=== PATIENT | male | born 1995 | race Caucasian/White ===

== ENCOUNTER 2018-02-07 11:03 | Emergency (ER) | END 2018-02-07 16:09 | disposition home or self-care (01) ==

== ENCOUNTER 2018-02-09 08:58 | Emergency (ER) | END 2018-02-09 10:56 | disposition home or self-care (01) ==

== ENCOUNTER 2018-02-09 15:32 | Observation (INO) | END 2018-02-10 14:15 | disposition left against medical advice (07) ==

== ENCOUNTER 2018-09-16 09:45 | Emergency (ER) | payer SELFPAY ==
[~2018-09-16] VITALS: Ht 172.7 cm; Wt 100.0 kg
[~2018-09-16 09:45] MED LIST: ACET325T33 PO; CEPH-443 PO; HYDR-4011 PO; IBUP800T48 PO; SULF1TAB31 PO
[2018-09-16 10:24] VITALS: BP 124/54; PULSE 70; RESP 20; Ht 172.7 cm; Wt 100.0 kg
[2018-09-16] MEDS ORDERED: KETOROLAC 60 MG INJ IM STA (11:03)
[2018-09-16] MEDS ORDERED: DEXAMETHASONE 10 MG/ML 1 ML INJ IM ONE (11:30)
[2018-09-16] MEDS ORDERED: CYCLOBENZAPRINE 10 MG TAB PO ONE (11:30)
[2018-09-16] MEDS ORDERED: morphine 10 MG INJ IM ONE (12:30)
--- NOTE | 2018-09-16 13:20 | ERD ---
ER Documentation Chief Complaint Chief Complaint c/o lower back pain x1 week, worse today, Hx: back surgery last year HPI History of Present Illness: 23-year-old male who denies past medical history coming in today with complaint of lower back pain is been present for 1 week. Patient reports unknown surgery during 2018 to lumbar due to infection that went to bone. Patient reports that pain is been present for the past week has been very mild. 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 Reports that he is able to go to work yesterday without any difficulty or problems. Patient reports waking up today and barely able to walk due to lower back pain. Denies loss of bowel or bladder. At home pharmacological/nonpharmacological treatment for symptoms: Gabapentin last night, hydrocodone 2 days ago (patient reports that he used to take hydrocodone previously when he had surgery, he accepted a hydrocodone pill from his family member, wasnt his prescription that he took 2 days ago) Denies social concerns; Denies recent foreign travel ROS All systems reviewed and are negative except as per history of present illness. Medications Home Meds Active Scripts Cyclobenzaprine Hcl* (Cyclobenzaprine Hcl*) 10 Mg Tablet, 10 MG PO Q8 PRN for MUSCLE SPASMS, #21 TAB Prov:OSIRIS CASANOVA [employer] 09/16/18 Tramadol HCl (Tramadol HCl) 50 Mg Tablet, 50 MG PO Q6 PRN for MODERATE-SEVERE PAIN (5-10 LEV, #20 TAB Prov:OSIRIS CASANOVA [employer] 09/16/18 Naproxen* (Naproxen*) 500 Mg Tablet, 500 MG PO BID PRN for PAIN AND/OR INFLAMMATION, #30 TAB Prov:OSIRIS CASANOVA [employer] 09/16/18 Sulfamethoxazole/Trimethoprim* (Bactrim Ds* Tablet) 1 Each Tablet, 1 TAB PO BID, #14 TAB Prov:PASILABANPAULAAR F 02/07/18 Cephalexin* (Keflex*) 500 Mg Capsule, 500 MG PO TID for 7 Days, CAP Prov:PASILABANPAULAAR F 02/07/18 Hydrocodone/Acetaminophen ([place] 5-325 Tablet) 1 Each Tablet, 1 TAB PO Q6H PRN for SEVERE PAIN LEVEL 7-10, #20 TAB Prov:PASILABANPAULAAR F 02/07/18 Acetaminophen* (Tylenol*) 325 Mg Tablet, 2 TAB PO Q6 PRN for PAIN AND OR ELEVATED TEMP, #20 TAB Prov:MARLINE LEDESMA 02/07/18 Ibuprofen* (Motrin*) 800 Mg Tab, 800 MG PO Q6H PRN for PAIN AND OR ELEVATED TEMP, #30 TAB Prov:MARLINE LEDESMA 02/07/18 Allergies Allergies: Coded Allergies: No Known Allergy (Unverified , 02/07/18) PMhx/Soc History of Surgery: Yes (05/2017- SPINAL SURGERY WITH METAL IMPLANTED) Anesthesia Reaction: No Hx Neurological Disorder: No Hx Respiratory Disorders: No Hx Cardiac Disorders: No Hx Psychiatric Problems: No Hx Miscellaneous Medical Probl: No Hx Alcohol Use: No Hx Substance Use: Yes (HX OF HEROIN USE) Hx Tobacco Use: Yes (SOMETIMES) Smoking Status: Current some day smoker FmHx Family History: diabetes; No coronary disease Physical Exam Vitals Vital Signs Date Temp Pulse Resp B/P (MAP) Pulse Ox O2 O2 Flow FiO2 Time Delivery Rate 09/16/18 97.8 70 20 124/54 98 10:24 (77) Physical Exam Const: No acute distress Head: Atraumatic Eyes: Normal Conjunctiva ENT: Normal External Ears, Nose and Mouth. Neck: Full range of motion. No meningismus. Resp: Clear to auscultation bilaterally Cardio: Regular rate and rhythm, no murmurs Abd: Soft, non tender, non distended. Normal bowel sounds Skin: No petechiae or rashes Back: No flank tenderness; positive midline tenderness to lumbar, no bruising, no ecchymosis, no warmth Ext: No cyanosis, or edema Neur: Awake and alert Psych: Normal Mood and Affect Results 24 hrs Current Medications Medications Dose Sig/Dorothy Start Time Status Last (Trade) Ordered Route PRN Stop Time Admin Dose Reason Admin Ketorolac 60 mg ONCE STAT 09/16/18 DC 09/16/18 Tromethamine IM 11:03 11:15 (Toradol) 09/16/18 11:09 10 mg ONCE ONCE 09/16/18 DC 09/16/18 Dexamethasone IM 11:30 11:14 (Decadron) 09/16/18 11:31 10 mg ONCE ONCE 09/16/18 DC 09/16/18 Cyclobenzapri PO 11:30 11:14 ne HCl 09/16/18 11:31 (Flexeril) Morphine 5 mg ONCE ONCE 09/16/18 DC 09/16/18 Sulfate IM 12:30 13:02 (morphine) 09/16/18 12:31 Procedures/MDM ED course includes a thorough examination and history. Medications: Ketorolac, dexamethasone, cyclobenzaprine Imaging: Lumbar x-ray Labs:-- Patient reassessment at 1225: Patient updated on radiology report results. Patient reports pain went from 10 of 10 to 9 out of 10. Patient still sitting in with a wheelchair. Will order IM morphine to help get adequate pain control. Low suspicion for life-threatening medical emergency low suspicion for neurological emergency. Low suspicion for genitourinary emergency. Low suspicion for infectious process; patient afebrile without antipyretics. Otherwise healthy patient presenting with constellation of symptoms likely representing lower back pain as characterized by history, physical exam findings, radiology findings. X-ray results showing: IMPRESSION: 1. Interbody and posterior fusion at L5-S1 with a disc-space air along with po sterior rods and pedicular screws. There has been laminectomies at L5. 2. Otherwise, unremarkable AP and lateral lumbosacral spine series. 3. Substantial stool is seen through the colon. Physician Jose Date Time Electronically viewed and signed by Chelsie Givens Physician on 09/16/2018 12:01 Patient reassessment @1340: Unable to locate patient for reassessment. 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 Disposition for eloped. Departure Diagnosis: Primary Impression: Back pain Back pain location: low back pain Chronicity: acute Back pain laterality: midline Sciatica presence: with sciatica Sciatica laterality: sciatica of right side Qualified Codes: M54.41 - Lumbago with sciatica, right side Condition: Stable OSIRIS CASANOVA NP September 16, 2018 13:20
[2018-09-16] MEDS ORDERED: TRAM50TA2 PO (13:25)
[2018-09-16] MEDS ORDERED: NAPR-688 PO (13:25)
[2018-09-16] MEDS ORDERED: CYCL10TA7 PO (13:25)
== END 2018-09-16 14:13 | disposition left against medical advice (07) ==
LOC: FTE 09:45
DX: M54.41 Lumbago with sciatica, right side (principal); F17.210 Nicotine dependence, cigarettes, uncomplicated
CPT/HCPCS: 72100; 96372; 99284; J1100; J1885; J2270